=== PATIENT | male | born 2000 | race Caucasian/White ===

== ENCOUNTER 2023-07-30 11:40 | Outpatient (OUT) | payer OTHER, SELFPAY ==
[2023-07-31 07:10] LABS: Hepatitis B Surf Ab Quant 3.9 mIU/mL (Immunity>9.9)
[2023-07-31 08:11] LABS: Measles Antibodies, IgG 14.7 AU/mL (Immune >16.4); Mumps Abs, IgG <9.0 AU/mL (Immune >10.9); Rubella Antibodies, IgG 1.75 index (Immune >0.99)
== END 2023-07-30 11:41 | disposition home or self-care (01) ==
LOC: LAB 11:40
PROVIDERS: PCP Family Medicine; Visit Provider Family Medicine
DX: Z00.00 Encounter for general adult medical examination without abnormal findings (principal)
CPT/HCPCS: 36415; 86317; 86735; 86762; 86765

== ENCOUNTER 2023-09-21 10:14 | Outpatient (OUT) | payer OTHER, SELFPAY ==
--- OUTSIDE RECORDS SUMMARY | 2023-09-21 10:22 | XMS_ITS ---
Patient Summarization (C-CDA 2.1 CCD) Created on: September 21, 2023 Amaris Uribe : 2000 Sex: Male Author Organization Sample organization Care Team Providers Care Tar Boiler Name Role Phone KHUSHBU DORSEY Attending Unavailable KHUSHBU DORSEY Consulting Unavailable KHUSHBU DORSEY Admitting Unavailable DR GRACE BONILLA Primary Care Unavailable Grace Bonilla Primary Care Physician DO Frankie Wu Attending Provider Frankie Wu Attending Unavailable Frankie Wu Admitting Unavailable Encounters Encounter Date Encounter Type Care Provider Facility Start: 12-31-2022 End: 12-31-2022 ambulatory Frankie Wu [facility] Work Phone: Start: 12-31-2022 End: 12-31-2022 Patient encounter procedure DO Frankie Wu Work Phone: [facility]-Flu Vaccine Start: 11-04-2021 End: 11-04-2021 Patient encounter procedure Sharla Leblanc [facility] Start: 10-22-2021 End: 10-22-2021 Patient encounter procedure Arabella Ochoa [facility] Start: 03-24-2021 End: 03-24-2021 ambulatory KHUSHBU DORSEY Facility:H1 Immunizations Immunization Date Immunization Notes Care Provider Ying ivan 01-13-2010 tetanus toxoid, redu sondra diphtheria toxoid, and acellular pertussis vaccine, adsorbed Arabella Ochoa [facility] Comment on above: Result Comment: righ t deltoid Medications Current Medications Medication Drug Class(es) Dates Sig (Normalized) Sig (Original) cephalexin 500 mg oral capsule (1 source) Cephalosporin Antibacterial Start: 10-22-2021 End: 10-29-2021 take 1 capsule by mouth four times daily Keflex 500 mg Cap 500 mg = 1 cap(s), Oral, QID, X 7 day(s), # 28 cap(s), Refills(s) 0, Pharmacy: [facility], 175, cm, 10/22/21 18:25:00 EDT, Height/Length Dosing, 75, kg, 10/22/21 18:25:00 EDT, Weight Dosing Start Date: 10/22/21 Stop Date: 10/29/21 Status: Ordered cetirizine hydrochloride 10 mg oral tablet (2 sources) Histamine-1 Receptor Antagonist Start: 05-06-2017 take 10 mg by mouth once daily Zyrtec 10 mg, Oral, Daily, Refills(s) 0, Allergy symptoms Start Date: 05/06/17 Status: Ordered omeprazole 40 mg delayed release oral capsule (4 sources) Proton Pump Inhibitor Start: 05-07-2017 take 1 capsule by mouth once daily omeprazole 40 mg Cap-DR 40 mg = 1 cap(s), Oral, Daily, # 30 cap(s), Refills(s) 2, Pharmacy: [facility] Start Date: 05/07/17 Status: Ordered Start: 05-07-2017 take 20 mg by mouth once daily Prilosec 20 mg, Oral, Daily, Refills(s) 0, Control of stomach acid Start Date: 05/07/17 Status: Ordered Payers Date Payer Category Payer Self-pay 2000 Unknown [id number] 1961 Unknown [id number] Unknown [id number] Problems Active Problems Problem Classification Problem Date Documented Date Episodic/Chronic Administrative/social admission (1 source) Administrative reason for encounter; Translations: [Encounter for examination for participation in sport] Onset: 11-04-2021 Episodic Headache; including migraine (1 source) Headache; including migraine; Translations: [HEADACHE UNSPECIFIED] Onset: 03-30-2021 Other screening for suspected conditions (not mental disorders or infectious disease) (2 sources) No current problems or disability 09-14-2013 Episodic Other upper respiratory disease (1 source) Other specified disorders of nose and nasal sinuses; Translations: [OTH SPEC D/O NOSE NASAL SINUSES] Onset: 03-30-2021 Episodic Skin and subcutaneous tissue infections (1 source) Cellulitis; Translations: [Cellulitis, unspecified] Onset: 10-22-2021 Episodic Unclassified (2 sources) CONTACT W/AND (SUSP) EXPOS COVID-19; Translations: [CONTACT W/AND (SUSP) EXPOS COVID-19] Onset: 03-30-2021 Viral infection (1 source) COVID-19; Translations: [COVID-19] Onset: 03-30-2021 Past or Other Problems Problem Classification Problem Date Documented Da te Episodic/Chronic Unclassified (1 source) CONTACT W/AND (SUSP) EXPOS COVID-19; Translations: [CONTACT W/AND (SUSP) EXPOS COVID-19] Onset: 03-24-2021 Procedures Date Procedure Procedure Detail Performing Clinician Denies Arabella Ochoa Results Test Name Value Interpretation Reference Range Facility [facility] 11-05-2021 Forms [id number]#[id number]:[id number] Normal [facility] Family Medicine Office/Clini c Noteon 11-04-2021 Family Medicine Office/Clinic Note Chief Complaint EST Sports Physical HPI Staff Patient 21 yo male presents for sports physical Pt will participate in [employer], Track and Field for [employer] [facility]) 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 Patient presents in office today for [employer] physical. Patient will be participating in [employer] and track at [employer]. He has been participating in club running up until this point. Patient has never been denied participation in sports. Patient denies any significant medical or surgical history. He does report bilateral tib/fib stress fractures in 2020 when training for a marathon. He completed 12 weeks of PT, no issues since. Patient also reports that left leg is approximately 6 mm longer than the right, wears a right insole to correct length difference. Patient had COVID in February 2021, reports insignificant illness without complication. Patient takes Zyrtec daily for seasonal allergies. Patient does not wear corrective lenses. Denies any concerns at this time. Review of Systems PHQ Score Initial Depression Screen Score: 0 Constitutional: fever:no, chills:no, sweats:no, weakness:no, body aches:no, RICHARDS:no Skin: rash:no, lesions:no Eye: eye pain:no, discharge:no, light sensitivity:no, eye irritation:no, blurring:no, vision loss: no ENMT: ear pain:no, sore throat:no, nasal congestion:no , nasal drainage: no, hoarseness:no Respiratory: chest congestion/tightnes s:no, shortness of breath: no, cough:no, wheezing:no, orthopnea:no Cardiovascular: chest pain:no, palpitations:no, edema to LEs:no Gastrointestinal: nausea:no, vomiting: no, diarrhea:no, constipation:no , hematochezia/hemate mesis:no Genitourinary: dysuria:no, hematuria:no, discharge:no, urinary frequency:no, urinary urgency:no Musculoskeletal: back pain:no, neck pain:no, shoulder pain:no, knee pain:no trauma /injury: no , swollen joint:no, joint pain:no, muscle aches:no Neurologic: headache:no, dizziness:no, numbness/tingling in extremities:no, weakness:no, vision changes:no Physical Exam Vitals & Measurements T: 36.8 ?C(Oral) HR: 69(Peripheral) BP: 120/78 SpO2: 97% HT: 178.0 cm HT: 178 cm WT: 78.8 kg WT: 78.8 kg BMI: 24.87 General: Well developed, well nourished, in no acute distress Head: Normocephalic/atrau matic Eyes: Pupils equal, round, and reactive to light. Conjunctivae and sclerae normal, and extraocular movements intact Ears: No deformity or lesion of external ear. Canals and TM appear normal bilaterally. TM?s intact, not inflamed, with normal light reflex. Hearing grossly normal to conversational speech Nose: No deformity, discharge, inflammation, or lesions Mouth: Mucous membranes moist. Normal oropharynx, and posterior pharynx without lesions or exudates. Tongue normal. No tonsils on this exam d/t surgical removal. Neck: Neck supple. No masses or palpable cervical nodes. Trachea midline. Thyroid without nodules, masses, tenderness, or enlargement Lungs: Normal respiratory effort and clear to auscultation throughout, no wheezing, no rales Cardio: regular rate and rhythm, no murmur Pulses: Normal capillary refill Abdomen: soft, nondistended, BS normal and active x4. Denies tenderness with palpation, no guarding, no grimacing Musculoskeletal: No deformity or scoliosis noted. Normal range of motion. Joints normal. No erythema, edema, effusion, or ecchymosis Extremity: No clubbing, cyanosis, edema, or deformity, with normal ROM in both upper and lower bilateral extremities Neurologic: Grossly normal Skin: No rashes, ulcerations, or suspicious lesions Mental Status: Alert and oriented x3. Normal mood and affect Assessment/Plan 1. Encounter for examination for participation in sport (Z02.5: Encounter for examination for participation in sport) Patient cleared for sports with no restrictions at this time. Discussed the need to report any and all injuries to coaches, trainers, or parents as soon as they present, do not wait or try to play through them as will only make worse. Discussed the importance or proper nutrition and hydration with physical activity. Adhere to rules and safety guidelines of your sport. Patient should follow up with PCP for any further health concerns or questions. F/u with PCP for regularly scheduled well visit and update immunizations. Patient verbalized understanding. Ordered: Office Visit No Charge Sports/Work Physical Follow-up [place] [address] [place] [id number]- Additional Instructions: Patient Education Preventing Traumatic Brain Injury, Adult Dental Mouthguards Problem List/Past Medical History Ongoing Denies Historical No qualifying data Procedure/Surgical History Denies. Medications omeprazole 40 mg Cap-DR, 40 mg= 1 cap(s), Oral, Daily, 2 refills, Not taking Prilosec, 20 mg, Oral, Daily, Not taking Z (more content not included)... Normal [facility] Comment on above: Result Comment: Elec tronically Signed By: RASHEL Leblanc APRN, Sharla Powers\.br\Date and Time Signed: 11/04/21 16:03 EDT Patient Educationon 11-05-19 Patient Education Dentistry Dental Mouthguards A dental mouthguard is a protective device that is placed around the teeth and gums. It is also called a mouth protector. Mouthguards are worn during sports and activities that involve a risk of injury to the mouth area. A well-fitting mouthguard helps protect the teeth, gums, lips, face, jaw, and brain from injury. Why should I wear a mouthguard? Mouthguards can help to protect you from injury if you receive a hard hit to the mouth and jaw area. Wearing a mouthguard can prevent: ? A chipped or broken tooth. ? A knocked-out tooth. ? Damage to nerves that supply the teeth. ? Injuries to the cheek, lip, or jaw. ? A concussion. When should I wear a mouthguard? You should wear a mouthguard during any activity that poses a risk of dental injury, especially: ? Contact sports. The risk is highest in this category of sports. They include boxing, football, lacrosse, and hockey. ? Non-contact sports. The risk of dental injury is low in this category of sports. However, a mouthguard is recommended. They include skiing, skating, or bike riding. A mouthguard should be worn during practices and games. What are the different types of mouthguards? Some mouthguards cover only the upper teeth, and some cover both the upper and lower sets of teeth. Each type of mouthguard fits differently and may offer varying levels of protection, comfort, and breathing ease. Types of mouthguards include: ? Stock. These mouthguards come with a preformed space for the teeth to fit into. They can be purchased at a local sporting [employer] store or pharmacy. Because they are preformed, they may not fit well, may not offer comfort, and may not provide a good level of protection. ? Boil and bite. This kind of mouthguard offers a slightly better fit than the stock type. You will form the space for your teeth by first soaking the mouthguard in boiling water. As soon as the guard is softened, you will bite down on the guard to get a form fit of your teeth. These mouthguards are commonly used for team sports. They can be purchased at your local sporting [employer] store or pharmacy. ? Custom. These guards are custom-fitted by a dentist. This is the most expensive option, but the mouthguard will be molded exactly to your mouth and teeth. This offers a high level of protection. How do I choose a mouthguard? Discuss with your dentist the types of physical activities that you participate in. Ask your dentist which type of mouthguard may work well for you. In general, your mouthguard should: ? Be made of strong material. ? Be odorless and tasteless. ? Fit properly and be thick enough to provide protection. ? Be easy to clean. ? Allow you to breathe well and speak well. People with dental appliances, such as braces, may need a more custom-fitted mouthguard. How do I care for my mouthguard? ? Keep your mouthguard clean by: ? Rinsing or brushing the mouthguard with water and toothpaste before and after each use. ? Washing the mouthguard with soap and cold water on a regular basis. ? Store your mouthguard in a vented protective case. ? Protect the mouthguard from high temperatures so it does not lose its shape. ? Do not use hot water during washing or rinsing. ? Do not leave it inside a car on a hot summer day. ? Do not wear removable appliances, such as retainers, during contact activities or under a mouthguard. ? Replace your mouthguard when it shows signs of wear or when it no longer fits properly. ? Bring your mouthguard to your next dental visit so your dentist can evaluate it. Summary ? A dental mouthguard is a protective device that is placed around the teeth and gums. It is also called a mouth protector. ? Mouthguards can help to protect you from injury if you receive a hard hit to the mouth and jaw area. ? You should wear a mouthguard during any activity that poses a risk of dental injury. ? Discuss with your dentist the types of physical activities that you participate in. Ask your dentist which type of mouthguard may work well for you. ? Keep your mouthguard clean and store it in a protective case that has good circulation of air. This information is not intended to replace advice given to you by your health care provider. Make sure you discuss any questions you have with your health care provider. Document Released: 04/17/2011 Document Revised: 09/06/2018 Document Reviewed: 09/06/2018 [employer] Patient Education ? 2019 [employer]. Neurology Preventing Traumatic Brain Injury, Adult Traumatic brain injury (TBI) is a type of brain injury that can be caused by a strong blow to the head (closed injury) or by an object that penetrates the skull and enters the brain (open injury). TBI can change the way your brain functions and can range from mild to severe. A mild TBI may cause only temporary changes. A concussion is the most common example of a mild TBI. A more (more content not included)... Normal [facility] Ambulatory Visit Summaryon 0 10-23-2021 Ambulatory Visit Summary AMARIS URIBE :2000 Visit Date:10/22/2021 Ambulatory Visit Instructions Your Diagnosis Cellulitis Your Care Team Attending Physician - Arabella Gonzáles Primary Care Physician - Grace Bonilla MD This Is Your Medications List cephalexin (Keflex 500 mg Cap) Contact prescribing physician if questions or concerns cetirizine (Zyrtec) omeprazole (Prilosec) omeprazole (omeprazole 40 mg Cap-DR) Procedures Performed Denies. Discharge Vitals Temperature (Oral) 36.8 ?C Heart Rate (Peripheral) 88 Blood Pressure 120/80 Height 175.0 cm Height 175 cm Weight 75.0 kg Weight 75 kg BMI 24.49 What to do next You Need to Schedule the Following Appointments Follow Up with Grace Bonilla MD When: Where: [facility] [place] [address]- Medications What How Much When Why Instructions New cephalexin (Keflex 500 mg Cap) 1 Capsules By Mouth 4 times a day Cellulitis Duration: 7 Days Pickup at [facility] Unchanged cetirizine (Zyrtec) 10 Milligram By Mouth Every day Contact prescribing physician if questions or concerns Unchanged omeprazole (omeprazole 40 mg Cap-DR) 1 Capsules By Mouth Every day Contact prescribing physician if questions or concerns Unchanged omeprazole (Prilosec) 20 Milligram By Mouth Every day Contact prescribing physician if questions or concerns Pharmacy Information [facility]: [address] [place] [address] [place] [id number] [phone] Allergies No Known Allergies Problems Ongoing - Any problem that you are currently receiving treatment for. Denies Education Materials Cellulitis, Adult Cellulitis is a skin infection. The infected area is usually warm, red, swollen, and tender. This condition occurs most often in the arms and lower legs. The infection can travel to the muscles, blood, and underlying tissue and become serious. It is very important to get treated for this condition. What are the causes? Cellulitis is caused by bacteria. The bacteria enter through a break in the skin, such as a cut, burn, insect bite, open sore, or crack. What increases the risk? This condition is more likely to occur in people who: ? Have a weak body defense system (immune system). ? Have open wounds on the skin, such as cuts, castro, bites, and scrapes. Bacteria can enter the body through these open wounds. ? Are older than 60 years of age. ? Have diabetes. ? Have a type of long-lasting (chronic) liver disease (cirrhosis) or kidney disease. ? Are obese. ? Have a skin condition such as: ? Itchy rash (eczema). ? Slow movement of blood in the veins (venous stasis). ? Fluid buildup below the skin (edema). ? Have had radiation therapy. ? Use IV drugs. What are the signs or symptoms? Symptoms of this condition include: ? Redness, streaking, or spotting on the skin. ? Swollen area of the skin. ? Tenderness or pain when an area of the skin is touched. ? Warm skin. ? A fever. ? Chills. ? Blisters. How is this diagnosed? This condition is diagnosed based on a medical history and physical exam. You may also have tests, including: ? Blood tests. ? Imaging tests. How is this treated? Treatment for this condition may include: ? Medicines, such as antibiotic medicines or medicines to treat allergies (antihistamines). ? Supportive care, such as rest and application of cold or warm cloths (compresses) to the skin. ? Hospital care, if the condition is severe. The infection usually starts to get better within 1?2 days of treatment. Follow these instructions at home: Medicines ? Take buin-xen-pgyebds and prescription medicines only as told by your health care provider. ? If you were prescribed an antibiotic medicine, take it as told by your health care provider. Do not stop taking the antibiotic even if you start to feel better. General instructions ? Drink enough fluid to keep your urine pale yellow. ? Do not touch or rub the infected area. ? Raise (elevate) the infected area above the level of your heart while you are sitting or lying down. ? Apply warm or cold compresses to the affected area as told by your health care provider. ? Keep all follow-up visits as told by your health care provider. This is important. These visits let your health care provider make sure a more serious infection is not developing. Contact a health care provider if: ? You have a fever. ? Your symptoms do not begin to improve within 1?2 days of starting treatment. ? Your bone or joint underneath the infected area becomes painful after the skin has healed. ? Your infection returns in the same area or another area. ? You notice a swollen bump in the infected area. ? You develop new symptoms. ? You have a general ill feeling (malaise) with muscle aches and pains. Get help (more content not included)... Normal [facility] Ambulatory Visit Summaryon 0 10-22-2021 Ambulatory Visit Summary AMARIS URIBE :2000 Visit Date:10/22/2021 Ambulatory Visit Instructions Your Care Team Attending Physician - Arabella Gonzáles Primary Care Physician - Grace Bonilla MD This Is Your Medications List Contact prescribing physician if questions or concerns cetirizine (Zyrtec) omeprazole (Prilosec) omeprazole (omeprazole 40 mg Cap-DR) Procedures Performed Denies. Discharge Vitals Temperature (Oral) 36.8 ?C Heart Rate (Peripheral) 88 Blood Pressure 120/80 Height 175.0 cm Height 175 cm Weight 75.0 kg Weight 75 kg BMI 24.49 What to do next You Need to Schedule the Following Appointments Follow Up with Grace Bonilla MD When: Where: [address] [place] [address]- Medications What How Much When Instructions Unchanged cetirizine (Zyrtec) 10 Milligram By Mouth Every day Contact prescribing physician if questions or concerns Unchanged omeprazole (omeprazole 40 mg Cap-DR) 1 Capsules By Mouth Every day Contact prescribing physician if questions or concerns Unchanged omeprazole (Prilosec) 20 Milligram By Mouth Every day Contact prescribing physician if questions or concerns Allergies No Known Allergies Problems Ongoing - Any problem that you are currently receiving treatment for. Denies Normal [facility] Medicine Office/Clini c Noteon 10-22-2021 Family Medicine Office/Clinic Note Chief Complaint [employer] bug bite back of left leg HPI Staff Patient 20 yo male presents with bug bite Onset- yesterday Location-back of left leg Pain/Itchy- pain, itchy Fever- no Characteristic- redness, swelling, warm to touch Treatment- cortisone cream, benadryl History of Present Illness I have reviewed and verified the staff HPI to be accurate for this encounter. 20-year-old male presenting in office today for a bug bite to the back of his left lower leg that happened yesterday. Pt stated he thinks it may have been a horse fly bite. Patient stated it is painful and itchy. Patient stated it is red, swelling, and warm to the touch. Patient stated he used cortisone cream and Benadryl cream that helps with the itching but has not helped with the redness and warmth. Patient denies fever and chills. Denies calf pain. Review of Systems PHQ Score Initial Depression Screen Score: 0 Physical Exam Vitals & Measurements T: 36.8 ?C(Oral) HR: 88(Peripheral) BP: 120/80 SpO2: 99% HT: 175.0 cm HT: 175 cm WT: 75.0 kg WT: 75 kg BMI: 24.49 General: alert and oriented, well nourished, no acute distress Eyes: normal sclera and conjunctivae, no periorbital edema Face: normal, symmetrical movements Heart: regular rate and rhythm Chest: normal shape and expansion Lungs: clear to auscultation, no wheezing/rhonchi/ra les, good air movement Respiratory: respirations even and unlabored, able to speak in full sentences and take deep breaths without difficulty, no gasping or shortness of breath noted, no use of accessory muscles noted Neuro: speech clear and coherent Skin: Moderate erythema noted with warmth noted located left lower extremity with 13cm x 10 cm area, no active drainage present, no red streaking Extremities: no cyanosis, cap refill brisk, negative Homans sign Assessment/Plan 1. Cellulitis (L03.90: Cellulitis, unspecified) History and exam consistent with cellulitis. Will treat with Keflex. Cleanse area with mild soap and water twice daily. Keep area clean and dry. F/u with PCP in 5-7 days to ensure improvement of symptoms, sooner if no improvement of symptoms. Seek medical attention immediately for fevers, increased redness and swelling, difficulty ambulating, increased pain. Patient verbalized understanding of treatment plan. Ordered: cephalexin, 500 mg = 1 cap(s), Oral, QID, X 7 day(s), # 28 cap(s), Refills(s) 0, Pharmacy: [facility], 175, cm, 10/22/21 18:25:00 EDT, Height/Length Dosing, 75, kg, 10/22/21 18:25:00 EDT, Weight Dosing Follow-up With [place] [address] [place] [address]- Additional Instructions: Patient Education Cellulitis, Adult Problem List/Past Medical History Ongoing Denies Historical No qualifying data Procedure/Surgical History Denies. Medications Keflex 500 mg Cap, 500 mg= 1 cap(s), Oral, QID omeprazole 40 mg Cap-DR, 40 mg= 1 cap(s), Oral, Daily, 2 refills, Not taking Prilosec, 20 mg, Oral, Daily, Not taking Zyrtec, 10 mg, Oral, Daily Allergies No Known Allergies Social History Alcohol - Denies Alcohol Use, 12/06/2011 Employment/School Student, 12/06/2011 Substance Abuse - Denies Substance Abuse, 12/06/2011 Tobacco - Denies Tobacco Use, 12/06/2011 Never (less than 100 in lifetime) Tobacco Use:. Never Smokeless Tobacco Use:., 10/22/2021 Immunizations Vaccine Date Status Comments diphtheria/pertussi s, acel/tetanus adult 01/13/2010 Given right deltoid Normal [facility] Comment on above: Result Comment: Elec tronically Signed By: Arabella Gonzáles.kelly\Date and Time Signed: 10/22/21 19:08 EDT Patient Educationon 10-23-19 Patient Education Infectious Disease Cellulitis, Adult Cellulitis is a skin infection. The infected area is usually warm, red, swollen, and tender. This condition occurs most often in the arms and lower legs. The infection can travel to the muscles, blood, and underlying tissue and become serious. It is very important to get treated for this condition. What are the causes? Cellulitis is caused by bacteria. The bacteria enter through a break in the skin, such as a cut, burn, insect bite, open sore, or crack. What increases the risk? This condition is more likely to occur in people who: ? Have a weak body defense system (immune system). ? Have open wounds on the skin, such as cuts, castro, bites, and scrapes. Bacteria can enter the body through these open wounds. ? Are older than 60 years of age. ? Have diabetes. ? Have a type of long-lasting (chronic) liver disease (cirrhosis) or kidney disease. ? Are obese. ? Have a skin condition such as: ? Itchy rash (eczema). ? Slow movement of blood in the veins (venous stasis). ? Fluid buildup below the skin (edema). ? Have had radiation therapy. ? Use IV drugs. What are the signs or symptoms? Symptoms of this condition include: ? Redness, streaking, or spotting on the skin. ? Swollen area of the skin. ? Tenderness or pain when an area of the skin is touched. ? Warm skin. ? A fever. ? Chills. ? Blisters. How is this diagnosed? This condition is diagnosed based on a medical history and physical exam. You may also have tests, including: ? Blood tests. ? Imaging tests. How is this treated? Treatment for this condition may include: ? Medicines, such as antibiotic medicines or medicines to treat allergies (antihistamines). ? Supportive care, such as rest and application of cold or warm cloths (compresses) to the skin. ? Hospital care, if the condition is severe. The infection usually starts to get better within 1?2 days of treatment. Follow these instructions at home: Medicines ? Take ejkz-sac-rmjsqte and prescription medicines only as told by your health care provider. ? If you were prescribed an antibiotic medicine, take it as told by your health care provider. Do not stop taking the antibiotic even if you start to feel better. General instructions ? Drink enough fluid to keep your urine pale yellow. ? Do not touch or rub the infected area. ? Raise (elevate) the infected area above the level of your heart while you are sitting or lying down. ? Apply warm or cold compresses to the affected area as told by your health care provider. ? Keep all follow-up visits as told by your health care provider. This is important. These visits let your health care provider make sure a more serious infection is not developing. Contact a health care provider if: ? You have a fever. ? Your symptoms do not begin to improve within 1?2 days of starting treatment. ? Your bone or joint underneath the infected area becomes painful after the skin has healed. ? Your infection returns in the same area or another area. ? You notice a swollen bump in the infected area. ? You develop new symptoms. ? You have a general ill feeling (malaise) with muscle aches and pains. Get help right away if: ? Your symptoms get worse. ? You feel very sleepy. ? You develop vomiting or diarrhea that persists. ? You notice red streaks coming from the infected area. ? Your red area gets larger or turns dark in color. These symptoms may represent a serious problem that is an emergency. Do not wait to see if the symptoms will go away. Get medical help right away. Call your local emergency services (911 in the [place] Do not drive yourself to the hospital. Summary ? Cellulitis is a skin infection. This condition occurs most often in the arms and lower legs. ? Treatment for this condition may include medicines, such as antibiotic medicines or antihistamines. ? Take djzi-cqh-njsyofp and prescription medicines only as told by your health care provider. If you were prescribed an antibiotic medicine, do not stop taking the antibiotic even if you start to feel better. ? Contact a health care provider if your symptoms do not begin to improve within 1?2 days of starting treatment or your symptoms get worse. ? Keep all follow-up visits as told by your health care provider. This is important. These visits let your health care provider make sure that a more serious infection is not developing. This information is not intended to replace advice given to you by your health care provider. Make sure you discuss any questions you have with your health care provider. Document Released: 12/23/2005 Document Revised: 08/04/2018 Document Reviewed: 08/04/2018 [employer] Patient Education ? 2019 [employer] Normal [facility] Covid-19 PCR (CVDTBH)on 02-27 SARS-CoV-2 (COVID-19) RNA GEMA+probe Ql (Unsp spec) Detected Critically abnormal NOT DETECTED [facility] Comment on above: Result Comment: This test is not yet approved or cleared by the [place] FDA. When there are no FDA-approved or cleared tests available, and other criteria are met, FDA can make tests available under an emergency access mechanism called an Emergency Use Authorization (EUA). The EUA for this test is supported by the President Celebrity [employer] of Health and Human Service's (HHS's) declaration that circumstances exist to justify the emergency use of in vitro diagnostics for the detection and/or diagnosis of the virus that causes COVID-19. This EUA will remain in effect (meaning this test can be used) for the duration of the COVID-19 declaration justifying emergency of IVDs, unless it is terminated or revoked by FDA (after which the test may no longer be used). Performed By: #### C VDTB #### [facility] [address] [address] [address] Roseline Collins PELVIS 1 OR 2 VIEWon 021 PELVIS 1 OR 2 VIEW *FINAL * Date of Service: 11/29/2020 08:39 Adm #: [id number] Reading Dr:SRINIVAS GOLDBERG Signoff Dr: SRINIVAS GOLDBERG PROCEDURE: PELVIS 1 OR 2 VIEW - CXR [id number] REASON FOR EXAM: LEG LENGTH DIFFERENCE RESULT: PELVIS 1 OR 2 VIEW: 11/29/2020 8:39 AM CLINICAL HISTORY: Leg length discrepancy COMPARISON: None. TECHNIQUE: AP erect view of the pelvis is completed. FINDINGS: The bones appear intact. The hip joints are maintained. Sacroiliac joints are maintained. IMPRESSION: Normal pelvis, hips, and sacroiliac joints. [id number] This report has been produced using speech recognition. Original Interpreting Physician: SRINIVAS GOLDBERG M.D. Original Transcribed by/Date: AMBER Nov 29 2020 9:28A Original Electronically Signed by/Date: SRINIVAS GOLDBERG M.D. Nov 29 2020 9:28A Addendum Interpreting Physician: Addendum Transcribed by/Date: NO ADDENDUM Addendum Electronically Signed by/Date: [facility] TIB FIB RT WOon 11-29-2020 TIB FIB RT WO *FINAL * Date of Service: 11/29/2020 08:24 Adm #: [id number] Reading Dr:GARRET PAGE Signoff Dr: GARRET PAGE PROCEDURE: TIB FIB RT WO - CMR [id number] REASON FOR EXAM: PAIN IN UNSPECIFIED LOWER LEG, RIGHT MEDIAL TIBIAL STRESS SYNDROME,STRAIN RESULT: TIB FIB RT WO: 11/29/2020 8:24 AM CLINICAL HISTORY: Pain lower leg medial tibial stress COMPARISON: 10/30/2020 TECHNIQUE: Multiplanar multisequence MRI obtained of the right tibia/fibula. FINDINGS: Right tibia demonstrates mild endosteal marrow edema within the anteromedial and portions the medial proximal tibial diaphysis. There is no intermediate signal intensity within the cortex or linear appearing stress fracture. Findings are in keeping with mild stress reaction. No periosteal edema demonstrated. Fibula demonstrates normal marrow signal intensity. No cortical irregularity demonstrated. Musculature within the compartments of the right calf demonstrate no asymmetric atrophy or edema. No feathery appearing interstitial muscle edema. No edema in the interfascial planes. No focal fascial tear or muscle herniation demonstrated. Left tibia/fibula visualized portions demonstrates minimal endosteal marrow edema within the distal third of the left tibial shaft with mild stress reaction. IMPRESSION: 1. Mild stress reaction within the proximal third of the tibial diaphysis along the anteromedial to medial tibial shaft with mild endosteal marrow edema. No fracture. 2. Visualized portions of the left tibia demonstrates mild stress reaction within the distal third of the tibia. This report has been produced using speech recognition. Original Interpreting Physician: GARRET PAGE MD Original Transcribed by/Date: PSCB Nov 29 2020 9:11A Original Electronically Signed by/Date: GARRET PAGE MD Nov 29 2020 9:11A Addendum Interpreting Physician: Addendum Transcribed by/Date: NO ADDENDUM Addendum Electronically Signed by/Date: [facility] TIB-FIB RT 2 VIEWon 10-31-19 21 TIB-FIB RT 2 VIEW *FINAL * Date of Service: 10/30/2020 17:28 Adm #: [id number] Reading Dr:ANIL DON Signoff Dr: ANIL DON PROCEDURE: TIB-FIB RT 2 VIEW - TXR 0060 REASON FOR EXAM: pain RESULT: TIB-FIB RT 2 VIEW: 10/30/2020 5:28 PM CLINICAL HISTORY: Pain in the right tibia for two weeks. Patient training for a marathon. COMPARISON: None. TECHNIQUE: Two views of the Right tibia/fibula were performed. FINDINGS: Bones: The bones appear intact. Joints: The joints are maintained. Soft tissues: There is mild soft tissue thickening or swelling along the anterior proximal-mid tibia.. IMPRESSION: No acute bony abnormality.. Questionable soft tissue swelling along the anterior proximal to mid tibia. [id number] This report has been produced using speech recognition. Original Interpreting Physician: ANIL DON MD Original Transcribed by/Date: PSCB Oct 30 2020 5:59P Original Electronically Signed by/Date: ANIL DON MD Oct 30 2020 5:59P Addendum Interpreting Physician: Addendum Transcribed by/Date: NO ADDENDUM Addendum Electronically Signed by/Date: [facility] M tuberculosis Quant,Incubat edon 10-11-2020 INTERPRETATION Normal [facility] Comment on above: Result Comment: (Not e) No evidence of current or previous infection with Mycobacterium tuberculosis. Performed at the [facility] unless otherwise noted. Performed By: #### I NTPGP #### [facility] [address] [place] [address] Mitogen minus Nil >10 Normal [facility] Comment on above: Performed By: #### I NTPGP #### [facility] [address] [place] [address] TB NIL 0.03 [facility] Comment on above: Result Comment: Unit : IU/mL Performed By: #### I NTPGP #### [facility] [address] [place] [address] TB RESULT [facility] Comment on above: Result Comment: Nega tive Reference range: NEGATIVE Performed By: #### I NTPGP #### [facility] [id number] [place] [address] TB1 Ag minus Nil 0.00 Normal [facility] Comment on above: Result Comment: Refe rence range: <0.35 Unit: IU/mL Performed By: #### I NTPGP #### [facility] [address] [place] [address] TB2 Ag minus Nil 0.00 Normal [facility] Comment on above: Result Comment: Refe rence range: <0.35 Unit: IU/mL Performed By: #### I NTPGP #### [address] [address] MUMPS IgG ANTIBODYon 021 MUMPS IgG ANTIBODY 5.1 Normal [facility] Comment on above: Result Comment: Unit : AU/mL AU/mL Values interpreted as follows: Negative Specimens <9.0 Equivocal specimens 9.0 to 10.9 Positive specimens >10.9 The magnitude of the measured result, above the cutoff, is not indicative of the amount of antibody present. Performed By: #### M UMPG #### [facility] [id number] [place] [address] MUMPS IgG,QUAL Normal [facility] Comment on above: Result Comment: Nega tive Reference range: NEGATIVE Absence of detectable mumps virus IgG antibodies. A negative result generally indicates that the patient has not been infected and is susceptible to mumps. If the subject has no history of mumps, has not been previously vaccinated and exposure to mumps virus is suspected despite a negative finding, a second sample should be collected and tested no less than one to two weeks later. Performed at the [facility] unless otherwise noted. Performed By: #### M UMPG #### [facility] [id number] [place] [address] RUBEOLA IGG ABon 10-10-2020 MEASLES IGG AB 19.8 Normal [facility] Comment on above: Result Comment: Unit : AU/mL AU/mL Value interpreted as follows: Negative Specimens <13.5 Equivocal Specimens >=13.5 to <16.5 Positive Specimens >=16.5 The magnitude of the measured result, above the cutoff, is not indicative of the amount of antibody present. Performed By: #### R UBO #### [address] [address] Measles IgG Ab, Qual [facility] Comment on above: Result Comment: Posi tive Reference range: NEGATIVE Presence of detectable measles virus IgG antibodies. A positive result generally indicates exposure to measles virus or previous vaccination. Performed at the [facility] unless otherwise noted. Performed By: #### R UBO #### [address] [address] VARICELLA ZOSTER IgG ABon VARICELLA ZOSTER IgG [facility] Comment on above: Result Comment: >400 0.0 Unit: Index Value Index Values are Interpreted as Follows: Negative specimens <135.0 Equivocal specimens 135.0 to 164.9 Positive specimens >164.9 The magnitude of the measured result is not indicative of the amount of antibody present. Performed By: #### V ARZ #### [address] [address] VZV IgG,QUAL [facility] Comment on above: Result Comment: Posi tive Reference range: NEGATIVE Presence of detectable VZV IgG antibodies. A positive result generally indicates exposure to the pathogen or administration of specific immunoglobulins, but is no indication of active infection or stage of disease. Performed at the [facility] unless otherwise noted. Performed By: #### V ARZ #### [address] [address] HEP B SURF ABon 10-09-2020 HEP B SURF AB [facility] Comment on above: Result Comment: NEGA TIVE Individual is considered to be not immune to infection with HBV. Performed at [place] [address] Performed By: #### H BSP #### [place] [address] RUBELLAon 10-09-2020 RUBELLA 53.64 IU/ml [facility] Comment on above: Result Comment: Refe rence Range: Negative: <10 IU/ml Positive: => 10 IU/ml NOTE: A positive result is consistant with immunity to Rubella Performed at [address] [address] Performed By: #### R UB #### [id number] [place] [address] Social History Date Type Detail Facility Start: 10-22-2021 End: 11-04-2021 Tobacco smoking status Never smoked tobacco (finding) [facility] Start: 2000 Sex Assigned At Male F [facility] Tobacco smoking status Never [facility] Sex Assigned At Male [facility] Vital Signs Date Time Vital Sign Value Performing Clinician Facility 11-04-2021 15:09-0400 Blood Pressure Location [facility] 11-04-2021 15:09-0400 Body temperature 98.24 [degF] [facility] 11-04-2021 15:09-0400 Diastolic blood pressure 78 mm[Hg] [facility] 11-04-2021 15:09-0400 Heart rate 69 /min [facility] 11-04-2021 15:09-0400 SaO2% (BldA) [Mass fraction] 97 % Sharla [employer] [facility] 11-04-2021 15:09-0400 Systolic blood pressure 120 mm[Hg] [employer] [facility] 10-22-2021 18:21-0400 Blood Pressure Location Arabella Ochoa [facility] 10-22-2021 18:21-0400 Body temperature 98.24 [degF] Arabella Cogar [facility] 10-22-2021 18:21-0400 Diastolic blood pressure 80 mm[Hg] Arabella Cogar [facility] 10-22-2021 18:21-0400 Heart rate 88 /min Arabella Cogar [facility] 10-22-2021 18:21-0400 SaO2% (BldA) [Mass fraction] 99 % Arabella Cogar [facility] 10-22-2021 18:21-0400 Systolic blood pressure 120 mm[Hg] Arabella Cogar [facility] Functional Status Date Assessment Result Facility 11-04-2021 Functional Status N/A [facility] 10-22-2021 Functional Status N/A [facility] Hospital Discharge instructions 11-04-2021 Note Date & Type Note Facility 11-04-2021 Hospital Discharg e instructions Patient Education 11/04/2021 16:03:05 Preventing Traumatic Brain Injury, Adult Preventing Traumatic Brain Injury, Adult Traumatic brain injury (TBI) is a type of brain injury that can be caused by a strong blow to the head (closed injury) or by an object that penetrates the skull and enters the brain (open injury). TBI can change the way your brain functions and can range from mild to severe. A mild TBI may cause only temporary changes. A concussion is the most common example of a mild TBI. A more severe TBI may cause permanent brain damage, coma, or even . You can get a TBI from any activity that results in head injury, including falls, motor vehicle accidents, sports, or physical abuse. How can a TBI affect me? If you do not take action to protect yourself from a fall or head injury, you can damage your brain temporarily or permanently. Even a mild TBI can cause changes in your mental status and consciousness. A severe TBI or repeated mild TBIs can cause long-term disability or . What actions can I take to lower my risk of a TBI? To prevent falls Be careful when walking on slippery or icy surfaces and when climbing stairs. Repair cracks and remove clutter from walkways, driveways, and doorways at home. Remove leaves, snow, and ice from walkways regularly. Make sure walkways, bedrooms, bathrooms, and stairways are well-lit. Use nonslip mats in bathrooms and showers. Install grab bars and handrails in stairways and bathrooms. When you use a stepladder, make sure that it is completely opened and that the sides are firmly locked. Have someone hold the ladder while you are using it. Do not climb a closed stepladder. Review your medicines with your health care provider. Some medicines can cause dizziness or changes in blood pressure, which increase your risk of falling. To prevent sports injuries Wear a helmet and other protective equipment when participating in sports. Use a helmet approved by the [place] [employer] (ASTM). This is especially important for sports that have a higher risk of TBI than others, such as: ?Football, rugby, ice hockey, and lacrosse. ?Baseball and softball. ?Bike riding. ?Horseback riding. Always wear a helmet for other high-risk activities, such as: ?Driving or riding motor-powered recreational vehicles, including motorcycles, motor scooters, ATVs, and go-karts. ?Winter sports, such as skiing, sledding, snowboarding, and snowmobiling. ?Water sports, such as water polo, water skiing, and water tubing. ?In-line skating, roller skating, and skateboarding. Never participate in sports when you are sick or tired. If you are playing a sport or doing any activity and you hit your head, tell your parent coach or another person immediately. Do not return to practice or play until you get permission from a health care provider. To prevent motor vehicle injuries Wear your seat belt every time you drive or ride in a motor vehicle. Do not drive after drinking alcohol, taking drugs, or taking a medicine that makes you sleepy. Never ride in a motor vehicle driven by someone who is under the influence of drugs or alcohol. Do not drive when you are sleepy or very tired. Do not use a cell phone or other digital device while driving. Do not text while driving. Obey speed limits and other traffic laws at all times. Do not speed. Pay close attention to road conditions. Slow down when there is rain, snow, or ice. To prevent other injuries Before using or owning a firearm, take a safety class to learn about safe use and storage. Keep firearms unloaded and locked in a safe place. Lock ammunition in a separate place. Never dive into water without knowing the depth. Never dive into water that is less than 12 feet (4 meters) deep. Always use caution when crossing the street. Use crosswalks and sidewalks when available. If there are no sidewalks, walk facing the traffic. When walking or cycling at dusk or night, wear bright or reflective clothing. If you do not feel safe in your home, contact the police or a local long term to find a temporary place to stay. Call 911 if you are in immediate danger or need medical help. Where to find more information For more information about preventing TBI, see: Centers for Disease Control and Prevention (CDC): www.cdc.gov [place] National Institutes of Health: nichd.nih.gov Contact a health care provider if: You have any of the following after a head injury: ?Headache. ?Dizziness. ?Memory problems or trouble concentrating. ?Fatigue or changes in sleep. ?Mood or personality changes, including depression, anxiety, or anger. ?Blurred vision or sensitivity to light. ?Nausea, vomiting, or both. Get help right away if: You have any of the following after a head injury: ?Headache that gets worse. ?Nausea or vomiting that gets worse. ?Slurred speech. ?Loss of consciousness. ?Weakness, numbness, or loss of coordination. ?Confusion. ?Being unable to control emotions or actions. ?Seizures. Summary Traumatic brain injury, or TBI, is a type of brain injury that results from an injury to your head. It can change the way your brain works. TBI may be prevented by taking steps to prevent motor vehicle accidents, sports injuries, falls, and other accidents. To protect yourself, drive safely on the road, and wear protective head gear when playing sports or doing risky activities. This information is not intended to replace advice given to you by your health care provider. Make sure you discuss any questions you have with your health care provider. Document Released: 05/02/2018 Document Revised: 07/07/2019 Document Reviewed: 05/02/2018 [employer] Patient Education 2019 [employer]. 11/04/2021 16:02:54 Dental Mouthguards Dental Mouthguards A dental mouthguard is a protective device that is placed around the teeth and gums. It is also called a mouth protector. Mouthguards are worn during sports and activities that involve a risk of injury to the mouth area. A well-fitting mouthguard helps protect the teeth, gums, lips, face, jaw, and brain from injury. Why should I wear a mouthguard? Mouthguards can help to protect you from injury if you receive a hard hit to the mouth and jaw area. Wearing a mouthguard can prevent: A chipped or broken tooth. A knocked-out tooth. Damage to nerves that supply the teeth. Injuries to the cheek, lip, or jaw. A concussion. When should I wear a mouthguard? You should wear a mouthguard during any activity that poses a risk of dental injury, especially: Contact sports. The risk is highest in this category of sports. They include boxing, football, lacrosse, and hockey. Non-contact sports. The risk of dental injury is low in this category of sports. However, a mouthguard is recommended. They include skiing, skating, or bike riding. A mouthguard should be worn during practices and games. What are the different types of mouthguards? Some mouthguards cover only the upper teeth, and some cover both the upper and lower sets of teeth. Each type of mouthguard fits differently and may offer varying levels of protection, comfort, and breathing ease. Types of mouthguards include: Stock. These mouthguards come with a preformed space for the teeth to fit into. They can be purchased at a local [employer] or pharmacy. Because they are preformed, they may not fit well, may not offer comfort, and may not provide a good level of protection. Boil and bite. This kind of mouthguard offers a slightly better fit than the stock type. You will form the space for your teeth by first soaking the mouthguard in boiling water. As soon as the guard is softened, you will bite down on the guard to get a form fit of your teeth. These mouthguards are commonly used for team sports. They can be purchased at your local [employer] store or pharmacy. Custom. These guards are custom-fitted by a dentist. This is the most expensive option, but the mouthguard will be molded exactly to your mouth and teeth. This offers a high level of protection. How do I choose a mouthguard? Discuss with your dentist the types of physical activities that you participate in. Ask your dentist which type of mouthguard may work well for you. In general, your mouthguard should: Be made of strong material. Be odorless and tasteless. Fit properly and be thick enough to provide protection. Be easy to clean. Allow you to breathe well and speak well. People with dental appliances, such as braces, may need a more custom-fitted mouthguard. How do I care for my mouthguard? Keep your mouthguard clean by: ?Rinsing or brushing the mouthguard with water and toothpaste before and after each use. ?Washing the mouthguard with soap and cold water on a regular basis. Store your mouthguard in a vented protective case. Protect the mouthguard from high temperatures so it does not lose its shape. ?Do not use hot water during washing or rinsing. ?Do not leave it inside a car on a hot summer day. Do not wear removable appliances, such as retainers, during contact activities or under a mouthguard. Replace your mouthguard when it shows signs of wear or when it no longer fits properly. Bring your mouthguard to your next dental visit so your dentist can evaluate it. Summary A dental mouthguard is a protective device that is placed around the teeth and gums. It is also called a mouth protector. Mouthguards can help to protect you from injury if you receive a hard hit to the mouth and jaw area. You should wear a mouthguard during any activity that poses a risk of dental injury. Discuss with your dentist the types of physical activities that you participate in. Ask your dentist which type of mouthguard may work well for you. Keep your mouthguard clean and store it in a protective case that has good circulation of air. This information is not intended to replace advice given to you by your health care provider. Make sure you discuss any questions you have with your health care provider. Document Released: 04/17/2011 Document Revised: 09/06/2018 Document Reviewed: 09/06/2018 [employer] Patient Education 2020 [employer] Follow Up Care 11/04/2021 14:53:25 With:Grace Bonilla MD Address: [address] [place], [place] [id number]- When: Unknown [facility] Discharge instructions 10-22-2021 Note Date & Type Note Facility 10-22-2021 Hospital Discharg e instructions Patient Education 10/22/2021 19:07:55 Cellulitis, Adult Cellulitis, Adult Cellulitis is a skin infection. The infected area is usually warm, red, swollen, and tender. This condition occurs most often in the arms and lower legs. The infection can travel to the muscles, blood, and underlying tissue and become serious. It is very important to get treated for this condition. What are the causes? Cellulitis is caused by bacteria. The bacteria enter through a break in the skin, such as a cut, burn, insect bite, open sore, or crack. What increases the risk? This condition is more likely to occur in people who: Have a weak body defense system (immune system). Have open wounds on the skin, such as cuts, castro, bites, and scrapes. Bacteria can enter the body through these open wounds. Are older than 60 years of age. Have diabetes. Have a type of long-lasting (chronic) liver disease (cirrhosis) or kidney disease. Are obese. Have a skin condition such as: ?Itchy rash (eczema). ?Slow movement of blood in the veins (venous stasis). ?Fluid buildup below the skin (edema). Have had radiation therapy. Use IV drugs. What are the signs or symptoms? Symptoms of this condition include: Redness, streaking, or spotting on the skin. Swollen area of the skin. Tenderness or pain when an area of the skin is touched. Warm skin. A fever. Chills. Blisters. How is this diagnosed? This condition is diagnosed based on a medical history and physical exam. You may also have tests, including: Blood tests. Imaging tests. How is this treated? Treatment for this condition may include: Medicines, such as antibiotic medicines or medicines to treat allergies (antihistamines). Supportive care, such as rest and application of cold or warm cloths (compresses) to the skin. Hospital care, if the condition is severe. The infection usually starts to get better within 1 2 days of treatment. Follow these instructions at home: Medicines Take [id number] and prescription medicines only as told by your health care provider. If you were prescribed an antibiotic medicine, take it as told by your health care provider. Do not stop taking the antibiotic even if you start to feel better. General instructions Drink enough fluid to keep your urine pale yellow. Do not touch or rub the infected area. Raise (elevate) the infected area above the level of your heart while you are sitting or lying down. Apply warm or cold compresses to the affected area as told by your health care provider. Keep all follow-up visits as told by your health care provider. This is important. These visits let your health care provider make sure a more serious infection is not developing. Contact a health care provider if: You have a fever. Your symptoms do not begin to improve within 1 2 days of starting treatment. Your bone or joint underneath the infected area becomes painful after the skin has healed. Your infection returns in the same area or another area. You notice a swollen bump in the infected area. You develop new symptoms. You have a general ill feeling (malaise) with muscle aches and pains. Get help right away if: Your symptoms get worse. You feel very sleepy. You develop vomiting or diarrhea that persists. You notice red streaks coming from the infected area. Your red area gets larger or turns dark in color. These symptoms may represent a serious problem that is an emergency. Do not wait to see if the symptoms will go away. Get medical help right away. Call your local emergency services (911 in the [place] Do not drive yourself to the hospital. Summary Cellulitis is a skin infection. This condition occurs most often in the arms and lower legs. Treatment for this condition may include medicines, such as antibiotic medicines or antihistamines. Take jahl-vxm-yspoinv and prescription medicines only as told by your health care provider. If you were prescribed an antibiotic medicine, do not stop taking the antibiotic even if you start to feel better. Contact a health care provider if your symptoms do not begin to improve within 1 2 days of starting treatment or your symptoms get worse. Keep all follow-up visits as told by your health care provider. This is important. These visits let your health care provider make sure that a more serious infection is not developing. This information is not intended to replace advice given to you by your health care provider. Make sure you discuss any questions you have with your health care provider. Document Released: 12/23/2005 Document Revised: 08/04/2018 Document Reviewed: 08/04/2018 [employer] Patient Education [employer] Follow Up Care 10/22/2021 17:33:13 With:Grace Bonilla MD Address: [address] [place] [id number] When: Unknown [facility] Evaluation + Plan note Note Date & Type Note Facility Evaluation + Plan note No data available for this section [facility] Evaluation note Note Date & Type Note Facility Evaluation note No assessment information availa [facility] Work Phone: Progress note Note Date & Type Note Facility Progress note No data available for this section [facility] Summary Purpose Family History No Family History Records FoundNo Family History Records FoundNo Family History Records FoundNo Family History Records Found Advance Directives No Advanced Directives Records Found Advance Directive Response Recorded Date/ Time Advance Directives No January 19, 2023 12:38pm Chief Complaint and Reason for Visit Chief Complaint Flu Vaccine Additional Source Comments (unrecognized sect ion and content) No Status Records FoundNo Status Records FoundNo Status Records FoundNo Status Records Found INFORMATION SOURCE (unrecogn ized section and content) DATE CREATED AUTHOR 03/30/2021 [facility] DATE CREATED AUTHOR AUTHOR'S ORGANIZ ATION 07/07/2021 [facility] DATE CREATED AUTHOR AUTHOR'S ORGANIZ ATION 11/05/2021 [facility] DATE CREATED AUTHOR AUTHOR'S ORGANIZ ATION 01/20/2023 [facility] Care Team (unrecognized sect ion and content) Team Status: Inactive Member Role Status Dates Frankie Wu DO [facility] Attending Provider Active Goals (unrecognized section and content) Goals may be documented in a n alternate section FOR RECORDS PERTAINING TO PATIENTS WHO ARE OR HAVE BEEN ENROLLED IN A CHEMICAL DEPENDENCY/SUBSTANCEABUSE PROGRAM, SOME INFORMATION MAY BE OMITTED. This clinical summary was aggregated from multiple sources. Caution should be exercised in using it in the provision of clinical care. This summary normalizes information from multiple sources, and as a consequence, information in this document may materially change the coding, format and clinical context of patient data. In addition, data may be omitted in some cases. CLINICAL DECISIONS SHOULD BE BASED ON THE PRIMARY CLINICAL RECORDS. [employer] provides no warranty or guarantee of the accuracy or completeness of information in this document.
[2023-09-22 06:10] LABS: HBsAg Screen Negative (Negative); Hepatitis B Surf Ab Quant >1000.0 mIU/mL (Immunity>9.9)
[2023-09-23 08:11] LABS: QuantiFERON-TB Gold Plus Negative (Negative)
== END 2023-09-21 10:15 | disposition home or self-care (01) ==
LOC: LAB 10:15
PROVIDERS: PCP Family Medicine; Visit Provider Family Medicine
DX: Z02.1 Encounter for pre-employment examination (principal)
CPT/HCPCS: 36415; 86317; 86480; 87340